=== PATIENT | female | born 2000 | race Caucasian/White ===

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

== ENCOUNTER 2019-11-14 13:20 | Outpatient (CLI) | payer BC, OTHER ==
--- NOTE | 2019-11-14 13:46 | XRAY Report ---
PROCEDURE: Chest 2 View X-Ray INDICATIONS: DRY COUGH TECHNIQUE: 2 view(s) of the chest. COMPARISON: None. FINDINGS: Surgical changes and devices: None. Lungs and pleura: No pleural effusions or pneumothorax. Mildly increased bronchovascular markings in bilateral hilar region are seen with mild bronchial wall thickening. No focal infiltrate. Mediastinum: Mediastinal contours are normal. Heart size is normal. Bones and chest wall: No suspicious bony abnormalities. Soft tissues appear unremarkable. IMPRESSION: Findings suggestive of mild reactive airway disease such as bronchitis or viral pneumoni a. No focal infiltrate. Reviewed by: Danny Ruff MD on 11/14/2019 1:44 PM PDT Approved by: Danny Ruff MD on 11/14/2019 1:44 PM PDT Station ID: [id number]
== END 2019-11-14 23:59 | disposition home or self-care (01) ==
LOC: DI.S 13:20
PROVIDERS: ATTEND Physician Assistant
DX: R91.8 Other nonspecific abnormal finding of lung field (principal)
CPT/HCPCS: 71046

== ENCOUNTER 2019-11-14 13:25 | Outpatient (CLI) | payer OTHER | END 2019-11-14 23:59 | disposition home or self-care (01) | LOC: LAB 13:25 | PROVIDERS: ATTEND Physician Assistant | DX: R05 Cough (principal); Z20.828 Contact with and (suspected) exposure to other viral communicable diseases ==